=== PATIENT | female | born 2000 | race Caucasian/White ===

== ENCOUNTER 2024-10-20 10:31 | Outpatient (CLI) | payer MEDICAID, SELFPAY ==
[2024-10-20] VITALS (8 sets, daily range): BP systolic 130; BP diastolic 75; PULSE 82–88; RESP 20–97; TEMP 36.6; O2SAT 92–99; BMI 44.4
[2024-10-20] MEDS: BETAMET ACET/BETAMET NA PH (Celestone) 6 MG/ML VIAL 12 MG IM (11:10)
== END 2024-10-20 11:15 | disposition home or self-care (01) ==
LOC: S4S1 10:32 → S4SX 10:33
PROVIDERS: Referring Provider Specialist; Visit Provider Specialist
DX: Z34.83 Encounter for supervision of other normal pregnancy, third trimester (principal); Z36.89 Encounter for other specified antenatal screening; Z3A.32 32 weeks gestation of pregnancy
CPT/HCPCS: 59025; 96372; J0702

== ENCOUNTER 2024-11-21 06:54 | Inpatient (IN) | payer MEDICAID, SELFPAY ==
[2024-11-21] VITALS (163 sets, daily range): BP systolic 0–168; BP diastolic 0–97; PULSE 73–106; RESP 18–20; TEMP 36.7–36.8; O2SAT 77–100; BMI 45.4
--- NOTE | 2024-11-21 08:26 | XR_ITS ---
Examination: age Limited Technique: Limited transabdominal sonographic images pelvis Exam date and time: November 21, 2024 0835 hrs. Indications: Labor evaluation, preinduction, diagnosis preeclampsia, unknown presentation Findings: Viable intrauterine gestation cephalic presentation spine maternal right Cardiac motion 167 BPM Estimated weight 3325.8 g Amniotic fluid index 9.8 cm Estimated gestational age 37 weeks 0 days Impression: Viable intrauterine gestation cephalic presentation
[2024-11-21 08:28] LABS: Collection Type, Urine Clean Catch
[2024-11-21 08:37] LABS: Basophils % (Auto) 0 % (0-2.5); Eosinophils # (Auto) 0.1 Thou/mm3 (0.0-0.5); Eosinophils % (Auto) 1 % (0-10); Hematocrit 33.1 % (36.0-46.0); Hemoglobin 10.9 g/dL (12.0-16.0); Immature Granulocytes % (Auto) 1 % (0-0); Immature Granulocytes Auto 0.05 Thou/mm3 (0.00-0.00); Lymphocytes # (Auto) 2.1 Thou/mm3 (1.0-4.8); Lymphocytes % (Auto) 22 % (10-50); Mean Corpuscular HGB Conc 32.9 g/dl (31.0-37.0); Mean Corpuscular Hemoglobin 28.1 pg (25.0-35.0); Mean Corpuscular Volume 85 fL (80-100); Monocytes # (Auto) 0.5 Thou/mm3 (0.0-0.8); Monocytes % (Auto) 5 % (0-12); Neutrophils # (Auto) 6.6 Thou/mm3 (1.8-7.7); Neutrophils % (Auto) 71 % (37-80); Nucleated Red Blood Cell % 0 /100 WBC (0); Platelet Count 292 Thou/mm3 (140-440); RDW Standard Deviation 45.6 fL (36.4-46.3); Red Blood Count 3.88 Miln/mm3 (4.00-5.20); White Blood Count 9.4 Thou/mm3 (3.6-11.0)
[2024-11-21] MEDS: LABETALOL 100 MG TABLET PO ×2 (08:37→20:24)
--- NOTE | 2024-11-21 08:45 | ESHP_ITS ---
RE: KEYSHA SALGADO : 2000 DATE OF ADMISSION: 11/21/2024 HISTORY OF PRESENT ILLNESS: This is a 23-year-old 3, para 1-0-1-1 with a due date of 12/11/2024 with intrauterine at 37 weeks and 1 day who presents for admission for preeclampsia without severe features. The patient is being admitted for preeclampsia without severe features with underlying chronic hypertension. The patient has been on labetalol throughout her at 100 mg b.i.d. She is also gestational diabetic diet control. Her most recent ultrasound on 11/19/2024 shows growth of 6 pounds 10 ounces at the 51st percentile. She denies any headache, change in vision or right upper quadrant pain. She reports normal movement. She denies any leaking or bleeding. ALLERGIES: NO KNOWN DRUG ALLERGIES. MEDICATIONS: 1. Labetalol 100 mg 1 p.o. b.i.d. 2. vitamin 1 p.o. daily. 3. Aspirin 81 mg 2 p.o. daily. SOCIAL HISTORY: She denies any alcohol, drug use or smoking. 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 OBSTETRIC HISTORY: In 04/2023, 40 weeks normal vaginal delivery, 8 pound 15 ounce male complicated by hemorrhage of 1000 mL. In 12/2023, 5 weeks spontaneous AB, no D and C. PAST SURGICAL HISTORY: Denies. REVIEW OF SYSTEMS: She denies any chest pain, palpitations, cough, fever, shortness of breath, or lower extremity pain. PHYSICAL EXAMINATION: VITAL SIGNS: Blood pressure is 147/75, heart rate 96, respirations 20, temperature 98.1, and pulse ox is 98% on room air. LUNGS: Clear to auscultation bilaterally. HEART: Regular rate and rhythm. ABDOMEN: Gravid consistent with estimated weight of 7.5 pounds. PELVIC: See RN notes. EXTREMITIES: Nontender. SKIN: No gross rashes or lesions. NEUROLOGIC: No focal deficit. ASSESSMENT: 1. Intrauterine at 37 weeks and 1 day. 2. Chronic hypertension with superimposed preeclampsia without severe features. 3. Gestational diabetes mellitus, class A1, well controlled, BMI of 46. 4. Induction of labor, anticipate spontaneous vaginal delivery. PLAN: Informed consent was obtained. The patient was made aware of the risks, complications, alternatives, and benefits of the proposed procedure and she agrees. She is aware of the risk of operative vaginal delivery and delivery and agrees with these modes of delivery if indicated. DT: 08:15:02 TT: 08:44:00 Ref: [id number] - TID: [id number]
[2024-11-21 08:59] LABS: Amorphous Crystals,Urine Present (Absent); Bacteria,Urine 1+; Bilirubin,Urine Negative (Negative); Blood,Urine Negative (Negative); Color,Urine Yellow (Lt Yel-Yel); Glucose, Urine Negative (Negative); Ketones,Urine Negative (Negative); Leukocyte Esterase,Urine Positive (Negative); Nitrite,Urine Negative (Negative); Protein,Urine 1+ (Neg - Trace); RBC,Urine 215 /hpf (0-3); Specific Gravity,Urine 1.015 (1.001-1.035); Squamous Epithelial Cell,Urine 7 /hpf (0-5); Urobilinogen,Urine Negative mg/dL (0.0-1.0); WBC,Urine 51 /hpf (0-5)
[2024-11-21 09:00] LABS: Fibrinogen 574 mg/dL (175-375)
[2024-11-21 09:04] LABS: Alanine Aminotransferase 25 U/L (10-49); Albumin, Serum 3.7 gm/dL (3.5-5.0); Albumin/Globulin Ratio 1.4 (1.2-2.2); Alkaline Phosphatase 107 U/L (46-116); Anion Gap 7 (7-16); Aspartate Amino Transferase 17 U/L (0-34); BUN/Creatinine Ratio 12 Ratio (12-20); Bilirubin,Total 0.3 mg/dL (0.3-1.2); Blood Urea Nitrogen 7 mg/dL (9-23); Calcium 8.8 mg/dL (8.3-10.6); Carbon Dioxide 24.2 mMol/L (20.0-31.0); Chloride 108 mMol/L (98-107); Creatinine (Component) 0.6 mg/dL (0.6-1.3); Estimated Creatinine Clearance 328.2 mL/min (>60); Globulin 2.6 gm/dL (2.3-3.5); Glucose 122 mg/dL (74-106); Osmolality,Calculated 276 (275-295); Potassium 3.9 mMol/L (3.4-5.1); Sodium 139 mMol/L (136-145); Total Protein 6.3 gm/dL (5.7-8.2); eGFR > 60 See Note
[2024-11-21 09:06] LABS: Clarity,Urine Cloudy (Clear/Hazy)
[2024-11-21 09:22] LABS: Syphilis Nonreactive (Nonreactive)
[2024-11-21] MEDS: DINOPROSTONE 10 MG VAG.SUPP VAGINAL (09:40)
[2024-11-21] MEDS: cefTRIAXone/D5w 1gm IV premix 50 ML IV (19:00)
[2024-11-21] MEDS: MISOPROSTOL 50 mCg TABLET PO (22:18)
[2024-11-22] VITALS (159 sets, daily range): BP systolic 0–191; BP diastolic 0–96; PULSE 76–126; RESP 17–20; TEMP 36.6–37; O2SAT 86–100
[2024-11-22] MEDS: MISOPROSTOL 50 mCg TABLET PO ×3 (02:23→12:45)
--- NOTE | 2024-11-22 08:33 | PD.LDPN ---
Documentation for date of: 11/22/24 OB Labor Progress Note Pain Control Comments: None needed Pelvic Exam Dilation (cm): 3 Effacement (%): 50 station: -3 Amniotic membrane status: Intact Comments: Vtx Contractions Contraction frequency: irregular Status status: Category l Assessment and Plan Comments: Continue cervical ripening
[2024-11-22] MEDS: LABETALOL 100 MG TABLET PO ×2 (09:08→18:45)
[2024-11-22] MEDS: cefTRIAXone/D5w 1gm IV premix 50 ML IV (19:13)
[2024-11-22] MEDS: OXYTOCIN in NS 30 units 30 UNIT/500 ML BAG IV (21:54)
[2024-11-23] VITALS (259 sets, daily range): BP systolic 0–182; BP diastolic 0–105; PULSE 42–173; RESP 18; TEMP 36.4–36.9; O2SAT 80–100
[2024-11-23] MEDS: Ampicillin Inj 2,000 MG in SODIUM CHLORIDE 0.9% (P) 100 ML 100 MG IV (03:26)
[2024-11-23] MEDS: RINGERS LACTATED 1000 ML 1,000 ML 125 ML IV (06:57)
--- NOTE | 2024-11-23 07:09 | PD.LDPN ---
Documentation for date of: 11/23/24 OB Labor Progress Note Pain Control Comments: Epidural Pelvic Exam Dilation (cm): 6 Effacement (%): 70 station: -2 Amniotic membrane status: Ruptured Comments: Forebag ruptured clear fluid noted. Contractions Contraction frequency: q 3-4 minutes Status status: Category l Assessment and Plan Comments: Induction continues with Pitocin Anticipate .
[2024-11-23] MEDS: Ampicillin Inj 1,000 MG in SODIUM CHLORIDE 0.9% (P) 50 ML 50 MG IV ×2 (07:59→12:33)
[2024-11-23] MEDS: LABETALOL 100 MG TABLET PO ×2 (08:57→20:58)
[2024-11-23] MEDS: hydrALAZINE INJ 20 MG/ML VIAL 5 MG IV (09:31)
--- NOTE | 2024-11-23 10:15 | PD.LDPN ---
Documentation for date of: 11/23/24 OB Labor Progress Note Pain Control Comments: Epidural Pelvic Exam Dilation (cm): 7 Effacement (%): 80 station: -1 Amniotic membrane status: Ruptured Contractions Contraction frequency: q 3-4 minutes Status status: Category l Assessment and Plan Comments: Hydralazine 5 mg given for BP > 160/110 BP 153/87 No headache or change in vision or right upper quadrant pain Anticipate Continue Pitocin.
[2024-11-23] MEDS: cefTRIAXone/D5w 1gm IV premix 50 ML IV (10:21)
[2024-11-23] MEDS: OXYTOCIN in NS 20 units 20 UNIT/1,000 ML BAG 125 UNIT IV (15:35)
[2024-11-23] MEDS: MISOPROSTOL 200 mCg TABLET 800 MCG PR (15:43)
[2024-11-23] MEDS: TRANEXAMIC ACID 1,000 MG IVPB 1,000 MG/100 ML BAG 200 MG IV (15:45)
[2024-11-23] MEDS: BENZO/LANO/ALOE (Dermoplast) 60 GM CAN 1 SPRAY TOP (16:15)
[2024-11-23] MEDS: IBUPROFEN TAB 400 MG TABLET 800 MG PO (16:17)
[2024-11-23 22:54] LABS: Basophils % (Auto) 0 % (0-2.5); Eosinophils # (Auto) 0.1 Thou/mm3 (0.0-0.5); Eosinophils % (Auto) 1 % (0-10); Hematocrit 31.4 % (36.0-46.0); Hemoglobin 10.5 g/dL (12.0-16.0); Immature Granulocytes % (Auto) 0 % (0-0); Immature Granulocytes Auto 0.05 Thou/mm3 (0.00-0.00); Lymphocytes % (Auto) 22 % (10-50); Mean Corpuscular HGB Conc 33.4 g/dl (31.0-37.0); Mean Corpuscular Hemoglobin 28.1 pg (25.0-35.0); Mean Corpuscular Volume 84 fL (80-100); Monocytes % (Auto) 7 % (0-12); Neutrophils # (Auto) 9.3 Thou/mm3 (1.8-7.7); Neutrophils % (Auto) 69 % (37-80); Nucleated Red Blood Cell % 0 /100 WBC (0); Platelet Count 304 Thou/mm3 (140-440); Red Blood Count 3.74 Miln/mm3 (4.00-5.20); White Blood Count 13.5 Thou/mm3 (3.6-11.0)
[2024-11-24 00:02] VITALS: BP 106/65; PULSE 96; RESP 18; TEMP 36.4; O2SAT 99
--- NOTE | 2024-11-24 00:47 | PC.NURSE ---
Mom feds the baby without waiting for the blood sugar to be check first,I educated her earlier that she needs to call the nurse first before the baby.Will wait for the next feeding time to check baby's blood sugar.
[2024-11-24 04:58] VITALS: BP 112/67; PULSE 95; RESP 19; TEMP 36.5; O2SAT 99
[2024-11-24 07:19] VITALS: BP 111/73; PULSE 81; RESP 20; TEMP 36.5; O2SAT 98
--- NOTE | 2024-11-24 08:52 | ESPR_ITS ---
RE: KEYSHA SALGADO : 2000 DATE OF SERVICE: 11/24/2024 S: day #1, the patient denies any problem or complaints. She is voiding. She is ambulating. She is tolerating regular diet. She is passing flatus. She denies any excessive vaginal bleeding. She denies any dizziness or lightheadedness. She denies any chest pain, palpitations, shortness of breath or lower extremity pain. O: Vital Signs: Blood pressure 112/67, heart rate 95, respirations 19, temperature 97.7, and pulse ox is 99% on room air. Lungs: Clear to auscultation bilaterally. Heart: Regular rate and rhythm. Abdomen: Fundus is firm. Extremities: Nontender. Laboratory Data: Hemoglobin on admission was 10.9 and was 10.5. A: day #1, status post spontaneous vaginal delivery. P: Discharge home. Discharge instructions given. Follow up in the office in six weeks. DT: 08:09:42 TT: 08:51:00 Ref: [id number] - TID: [id number]
[2024-11-24 09:10] VITALS: BP 132/79; PULSE 80
[2024-11-24] MEDS: LABETALOL 100 MG TABLET PO (09:10)
[2024-11-24] MEDS: cefTRIAXone 1,000 MG in SODIUM CHLORIDE 0.9% (P) 50 ML 100 MG IV (09:11)
--- NOTE | 2024-11-24 11:03 | OBDSUM_ITS ---
Data ([facility]) Data Hx Section: No : 3 Para: 1 Term: 1 : 0 : 0 Delivery Data ([facility]) Labor Data ROM Date: 11/23/24 ROM Time: 04:43 Rupture Type: SROM Amniotic Fluid: Clear Delivery Data EDC: 12/11/24 EDC calculated by:: LMP/early US confirmation Labor Onset Stage 1 Date: 11/23/24 Labor Onset Stage 1 Time: 04:00 Labor Onset Stage 2 Date: 11/23/24 Labor Onset Stage 2 Time: 15:00 Delivery Date: 11/23/24 Delivery Time: 15:29 Gestational age (weeks): 37 Gestational age (days): 3 Placenta Delivery Date: 11/23/24 Placenta Delivery Time: 15:38 Delivered by: Shasta Lewis Delivery nurse: Shasta Lewis Other staff at delivery: 2nd Nurse Other staff at delivery: 2nd Nurse Other staff at delivery: Sylvia Ramirez Other staff at delivery: Evelyn Smith Delivery Method Delivery: Vaginal Delivery Type: Spontaneous Presentation: Vertex Position: OA Anesthesia Type Primary Anesthesia: Epidural Placenta Placenta Delivery: Spontaneous Placenta Cultures Obtained: No Placenta Sent for Examination: No Cord Sample: Cord Blood Obtained EBL Estimated blood loss (ml): 500 Additional Procedures None Complications Complications: Uterine atony Data ([facility]) [place] Data Gender: Female Infant Weight Grams: 3060 1 Minute Total: 8 5 Minute Total: 9
--- NOTE | 2024-11-24 11:03 | ESDS_ITS ---
DS: Providers Provider Date of admission: 11/21/24 06:54 Primary care physician: Physician No Primary/Family Admitting Provider: Nahid Krueger MD Attending Provider on Admission: Nahid Krueger MD Consults: 11/23/24 18:21 Referral Routine Comment: Attending Provider on DC: Nahid Krueger MD Discharging Provider: Nahid Krueger MD DS: Diagnosis Problem List Completed Was Problem List Reviewed/Reconciled?: Yes Summary/Hosp Course Time Spent with Patient Time attestation: Total time spent providing and/or coordinating discharge services: Exam Vital Signs Temp Pulse Resp BP Pulse Ox O2 Del Method 97.7 F 80 20 132/79 H 98 Room Air 11/24/24 07:19 11/24/24 09:10 11/24/24 07:19 11/24/24 09:10 11/24/24 07:19 11/24/24 07:19 Discharge Plan Plan Patient Disposition: HOME (Self Care) Patient condition on transfer: Stable Prescriptions/Referrals Prescriptions/Med Rec: Continued Classic 28 mg iron- 800 mcg tablet 1 tab PO QDAY Patient Comments: TAKE 1 TABLET BY MOUTH EVERY DAY Discontinued aspirin 81 mg Capsule 81 mg PO QDAY labetalol 200 mg Tablet 100 mg PO BID Referrals: No Primary/Family,Physician [Primary Care Provider] - Patient/Caregiver Discharge Instructions Discharge Activity: activity as tolerated Other Discharge Activity Instructions:: Follow up office 6 weeeks Check BP twice daily and if BP > 140/90 take Labetalol Print Language: [place] Stand Alone Forms: Darleen Award Info., Patient Portal Info Letter Planned Discharge Date 11/24/24
[2024-11-24 11:49] VITALS: BP 128/75; PULSE 90; RESP 16; TEMP 36.6; O2SAT 96
[2024-11-24] MEDS: INFLUENZA VIRUS QUADRIVALENT 0.5 ML SYRINGE IMi (17:32)
== END 2024-11-24 18:32 | disposition home or self-care (01) | DRG 560 ==
LOC: S4SX 11-23 15:53 → S4NX 11-23 20:35
PROVIDERS: Admitting Provider Specialist; Visit Provider Specialist
DX: O11.4 Pre-existing hypertension with pre-eclampsia, complicating childbirth (principal); O24.420 Gestational diabetes mellitus in childbirth, diet controlled; Z37.0 Single live birth; Z3A.37 37 weeks gestation of pregnancy; O99.214 Obesity complicating childbirth; O62.2 Other uterine inertia; Z23 Encounter for immunization
CPT/HCPCS: 36415; 59409; 76815; 80053; 81001; 85025; 85384; 86780; 86850; 86900; 86901; 86923; 87086; 90686; 94762; J0290; J0360; J0696; J2371; J2590; J2795; J3010; J3490; J7050; J7120; S0191; A9270; J9060